=== PATIENT | male | born 1960 | race Caucasian/White ===

== ENCOUNTER 2019-10-14 08:14 | Day surgery (SDC) | payer BC ==
[~2019-10-14] VITALS: Ht 180.3 cm; Wt 86.7 kg
[2019-10-14] MEDS ORDERED: AMLO2.5T2 PO (08:51)
[2019-10-14] MEDS ORDERED: NICO-630 TOP (08:51)
[2019-10-14] MEDS ORDERED: IBUP-1984 PO (08:51)
[2019-10-14] MEDS ORDERED: LISI-600 PO (08:51)
[2019-10-14 09:00] VITALS: BP 167/98
[2019-10-14 09:30] VITALS: BP 170/92
[2019-10-14 09:35] VITALS: BP 162/95
[2019-10-14 09:45] VITALS: BP 154/83
== END 2019-10-14 10:05 | disposition home or self-care (01) ==
LOC: SSTAY O 08:14
PROVIDERS: ATTEND Radiology Diagnostic Radiology
DX: M79.81 Nontraumatic hematoma of soft tissue (principal); I73.9 Peripheral vascular disease, unspecified; Z79.899 Other long term (current) drug therapy; Z91.013 Allergy to seafood; Z72.89 Other problems related to lifestyle; Z95.820 Peripheral vascular angioplasty status with implants and grafts
CPT/HCPCS: 10160; 76942

== ENCOUNTER 2019-10-25 11:00 | Day surgery (SDC) | payer BC ==
[~2019-10-25 11:00] MED LIST: AMLO2.5T2 PO; IBUP-1984 PO; LISI-600 PO; NICO-630 TOP
[2019-10-25 11:18] VITALS: BP 190/106
[2019-10-25] MEDS ORDERED: LIDOcaine 1% 30ml preserv. free vial SQ STA (11:26)
[2019-10-25 11:45] VITALS: BP 178/91
== END 2019-10-25 12:00 | disposition home or self-care (01) ==
LOC: SSTAY O 11:00
PROVIDERS: ATTEND Radiology Vascular & Interventional Radiology
DX: I97.648 Postprocedural seroma of a circulatory system organ or structure following other circulatory system procedure (principal); Y83.8 Other surgical procedures as the cause of abnormal reaction of the patient, or of later complication, without mention of misadventure at the time of the procedure; Y92.89 Other specified places as the place of occurrence of the external cause; Z79.899 Other long term (current) drug therapy; I73.9 Peripheral vascular disease, unspecified
CPT/HCPCS: 10030; 10160; 76942

== ENCOUNTER 2022-12-31 07:55 | Day surgery (SDC) | payer MEDICARE ==
[2022-12-31] VITALS (11 sets, daily range): BP systolic 98–133; BP diastolic 57–73
[~2022-12-31] VITALS: Ht 180.3 cm; Wt 84.5 kg
[~2022-12-31 07:55] MED LIST changes: -LISI-600 PO; +LISI20TA28 PO
[2022-12-31] MEDS ORDERED: diphenhydrAMINE 25mg capsule PO PRN (08:25)
[2022-12-31] MEDS ORDERED: methylPREDNISolone sod succ 125mg/2ml vial IV ONE (08:25)
[2022-12-31] MEDS ORDERED: normal saline 1,000 ML IV SCH (08:25)
[2022-12-31] MEDS ORDERED: nitroGLYCERIN 0.4mg SUBLingual tab SL PRN (08:25)
[2022-12-31] MEDS ORDERED: LORazepam 0.5 MG tablet PO PRN (08:25)
[2022-12-31] MEDS ORDERED: ASPI81TA52 PO (08:26)
[2022-12-31 09:41] LABS: ALBUMIN 3.4 G/DL (3.4-5.0); ANION GAP 6 (8-16); BLOOD UREA NITROGEN 9 MG/DL (7-18); BUN/CREATININE RATIO 13.6 (5.4-32.0); CALCIUM 9.3 MG/DL (8.5-10.1); CHLORIDE 104 MMOL/L (99-107); CREATININE 0.66 MG/DL (0.60-1.10); GLUCOSE 107 MG/DL (70-104); POTASSIUM 3.8 MMOL/L (3.5-5.1); SODIUM 137 MMOL/L (135-145); TOTAL CARBON DIOXIDE 26.7 MMOL/L (24-32); eGFR > 90 ML/MIN
[2022-12-31] MEDS ORDERED: iohexol 350 MG/ML 50ML vial IV ONE (11:48)
[2022-12-31] MEDS ORDERED: iohexol 350MG/ML 100ml bottle IV ONE (11:48)
[2022-12-31] MEDS ORDERED: LIDOcaine 1% 30ml preserv. free vial ONE (11:48)
[2022-12-31] MEDS ORDERED: midazolam 1 mg/ML 2ml injection ONE ×2 (11:48→12:18)
[2022-12-31] MEDS ORDERED: fentaNYL/PF 50MCG/1 ML 2ML syringe ONE (11:48)
[2022-12-31] MEDS ORDERED: ondansetron/PF 4mg/2ml inj IV PRN (13:00)
[2022-12-31] MEDS ORDERED: HYDROcodone/acetaminophen 5mg/325mg tablet PO PRN (13:00)
[2022-12-31] MEDS ORDERED: proCHLORperazine 10 MG/2 ml inj IV PRN (13:00)
[2022-12-31] MEDS ORDERED: HYDROcodone/acetaminophen 10/325mg tab PO PRN (13:00)
[2022-12-31] MEDS ORDERED: OXAZEpam 15mg capsule PO PRN (13:00)
== END 2022-12-31 18:00 | disposition home or self-care (01) ==
LOC: SSTAY O 07:55
PROVIDERS: ATTEND Internal Medicine Cardiovascular Disease
DX: R94.39 Abnormal result of other cardiovascular function study (principal); I25.10 Atherosclerotic heart disease of native coronary artery without angina pectoris; I73.9 Peripheral vascular disease, unspecified; I10 Essential (primary) hypertension; J44.9 Chronic obstructive pulmonary disease, unspecified; E78.5 Hyperlipidemia, unspecified; F40.240 Claustrophobia; Z88.8 Allergy status to other drugs, medicaments and biological substances; Z86.16 Personal history of COVID-19; Z87.891 Personal history of nicotine dependence; F10.20 Alcohol dependence, uncomplicated; Z96.652 Presence of left artificial knee joint
CPT/HCPCS: 36415; 80048; 93005; 93458; 99152; 99153; C1760; C1769; J1644; J2250; J2930; J3010; J3490; J7030; Q0163; Q9967